=== PATIENT | male | born 2000 | race American Indian/Alaskan Native ===

== ENCOUNTER 2020-07-09 02:07 | Emergency (ER) | payer OTHER ==
[2020-07-09 02:59] VITALS: BP 145/74
--- NOTE | 2020-07-09 04:07 | XRay Report ---
CHEST 2 VIEWS INDICATION / CLINICAL INFORMATION: chestpain. COMPARISON: None available. FINDINGS: SUPPORT DEVICES: None. HEART / MEDIASTINUM: No significant abnormality. LUNGS / PLEURA: No significant pulmonary or pleural abnormality. No pneumothorax. ADDITIONAL FINDINGS: No significant additional findings. IMPRESSION: 1. No acute findings. Signer Name: Petrona Rand MD Signed: 07/09/2020 4:03 AM Workstation Name: [id number]
[2020-07-09 05:06] LABS: Bilirubin,Urine NEG (Negative); Blood,Urine NEG (Negative); Color,Urine Amber (Yellow); Mucus,Urine FEW /HPF; Protein,Urine <15 mg/dL mg/dL (Negative); WBC,Urine < 1.0 /HPF (0.0-6.0)
[2020-07-09] MEDS ORDERED: LIDOCAINE-MPF (1%) 10 MG/1 ML VIAL 5 ML INFILTRATI ONE (05:12)
[2020-07-09] MEDS ORDERED: AZITHROMYCIN 250 MG TAB PO ONE (05:12)
[2020-07-09] MEDS ORDERED: predniSONE 20 MG TAB PO ONE (05:13)
[2020-07-09] MEDS ORDERED: ACETAMINOPHEN 500 MG TAB PO ONE (05:13)
--- NOTE | 2020-07-09 06:10 | Emergency Department Report ---
ED General Adult HPI - General Chief complaint: Chest Pain Stated complaint: CHEST TIGHTNESS/PAINFUL URINATION Source: patient Mode of arrival: Ambulatory Limitations: No Limitations - History of Present Illness Initial comments: Patient is a 20 yo AA male with a history of asthma who presents to the ED with complaint of acute onset persistent chest tightness after smoking marijuana about 4 hours ago. Patient also complaints of low back pain for the last 1 week with dysuria, urinary frequency and urgency, worse in the last 3 days. Patient states that he has been taking Azo tablets at home with no relief. Patient denies fever, chills, nausea, vomiting, dizziness, syncope, testicular pain, abdominal pain, hematuria, back pain, penile discharge or traumatic injury. MD Complaint: Dysuria; cough, chest tightness; urinary urgency -: Sudden, week(s) (1) Location: chest, genitals Radiation: non-radiation Severity scale (0 -10): 6 Quality: aching, sharp Consistency: constant Improves with: none Worsens with: none Associated Symptoms: denies other symptoms, cough, shortness of breath. denies: confusion, chest pain, diaphoresis, fever/chills, headaches, malaise, nausea/vomiting, rash, seizure, syncope, weakness Treatments Prior to Arrival: none - Related Data Previous Rx's Medication Instructions Recorded Last Taken Type Ibuprofen [Motrin] 600 mg PO Q8H PRN #15 tablet 12/17/15 Unknown Rx Cyclobenzaprine [Flexeril] 10 mg PO Q12H PRN #15 tablet 07/09/20 Unknown Rx Ibuprofen [Motrin] 800 mg PO Q8HR PRN #24 tablet 07/09/20 Unknown Rx cephALEXin [Keflex] 500 mg PO Q8HR #30 cap 07/09/20 Unknown Rx predniSONE [Deltasone] 40 mg PO QDAY #10 tab 07/09/20 Unknown Rx Allergies Allergy/AdvReac Type Severity Reaction Status Date / Time No Known Allergies Allergy Unverified 12/17/15 15:26 ED Review of Systems ROS: Stated complaint: CHEST TIGHTNESS/PAINFUL URINATION Other details as noted in HPI Constitutional: denies: chills, fever Eyes: denies: eye pain, eye discharge, vision change ENT: denies: ear pain, throat pain Respiratory: cough, shortness of breath, wheezing Cardiovascular: denies: chest pain, palpitations Endocrine: no symptoms reported Gastrointestinal: denies: abdominal pain, nausea, vomiting, diarrhea Genitourinary: urgency, dysuria, frequency Musculoskeletal: back pain (lower back). denies: joint swelling, arthralgia Skin: denies: rash, lesions Neurological: denies: headache, weakness, paresthesias Psychiatric: denies: anxiety, depression Hematological/Lymphatic: denies: easy bleeding, easy bruising ED Past Medical Hx - Past Medical History Previous Medical History?: Yes Hx Asthma: Yes - Surgical History Past Surgical History?: No - Social History Smoking Status: Current Every Day Smoker Substance Use Type: Marijuana - Medications Home Medications: Home Medications Medication Instructions Recorded Confirmed Last Taken Type Ibuprofen [Motrin] 600 mg PO Q8H PRN #15 tablet 12/17/15 Unknown Rx Cyclobenzaprine [Flexeril] 10 mg PO Q12H PRN #15 tablet 07/09/20 Unknown Rx Ibuprofen [Motrin] 800 mg PO Q8HR PRN #24 tablet 07/09/20 Unknown Rx cephALEXin [Keflex] 500 mg PO Q8HR #30 cap 07/09/20 Unknown Rx predniSONE [Deltasone] 40 mg PO QDAY #10 tab 07/09/20 Unknown Rx ED Physical Exam - General Limitations: No Limitations General appearance: alert, in no apparent distress - Head Head exam: Present: atraumatic, normocephalic, normal inspection - Eye Eye exam: Present: normal appearance, PERRL, EOMI Pupils: Present: normal accommodation - ENT ENT exam: Present: normal exam, normal orophraynx, mucous membranes moist, TM's normal bilaterally, normal external ear exam - Neck Neck exam: Present: normal inspection, full ROM - Respiratory Respiratory exam: Present: normal lung sounds bilaterally. Absent: respiratory distress, wheezes, rales, rhonchi, chest wall tenderness, accessory muscle use, decreased breath sounds, prolonged expiratory - Cardiovascular Cardiovascular Exam: Present: regular rate, normal rhythm, normal heart sounds. Absent: systolic murmur, diastolic murmur, rubs, gallop - GI/Abdominal GI/Abdominal exam: Present: soft, normal bowel sounds. Absent: tenderness, guarding, rebound, hyperactive bowel sounds, hypoactive bowel sounds, organomegaly - exam: Present: normal inspection External exam: Present: normal external exam - Extremities Exam Extremities exam: Present: normal inspection, full ROM, normal capillary refill - Back Exam Back exam: Present: normal inspection, full ROM. Absent: tenderness, CVA tenderness (R), CVA tenderness (L), muscle spasm, paraspinal tenderness, vertebral tenderness - Neurological Exam Neurological exam: Present: alert, oriented X3, CN II-XII intact, normal gait, reflexes normal - Psychiatric Psychiatric exam: Present: normal affect, normal mood - Skin Skin exam: Present: warm, dry, intact, normal color. Absent: rash ED Course Vital Signs 07/09/20 02:41 Temperature 98.0 F Pulse Rate 92 H Respiratory 18 Rate Blood Pressure 145/74 O2 Sat by Pulse 98 Oximetry ED Medical Decision Making - Radiology Data Radiology results: report reviewed, [place] [address] XRay Report Signed Patient: CARLOS ALBERTO CABEZAS MR#: [id number] : 2000 Acct:[id number] Age/Sex: 20 / M ADM Date: 07/09/20 Loc: ED Attending Dr: Ordering Physician: ED MD KYLE Date of Service: 07/09/20 Procedure(s): XR chest routine 2V Accession Number(s): [id number] cc: ED MD KYLE Fluoro Time In Minutes: CHEST 2 VIEWS INDICATION / CLINICAL INFORMATION: chestpain. COMPARISON: None available. FINDINGS: SUPPORT DEVICES: None. HEART / MEDIASTINUM: No significant abnormality. LUNGS / PLEURA: No significant pulmonary or pleural abnormality. No pneumothorax. ADDITIONAL FINDINGS: No significant additional findings. IMPRESSION: 1. No acute findings. Signer Name: Petrona Rand MD Signed: 07/09/2020 4:03 AM Workstation Name: [id number] Transcribed By: Dictated By: Petrona Rand MD Electronically Authenticated By: Petrona Rand MD Signed Date/Time: 07/09/20402 DD/ 1 TD/TT: - Medical Decision Making This is a 20 yo AA male with a history of asthma who presents to the ED with complaint of acute onset persistent chest tightness after smoking marijuana about 4 hours ago. Patient also complaints of low back pain for the last 1 week with dysuria, urinary frequency and urgency, worse in the last 3 days. Patient states that he has been taking Azo tablets at home with no relief. In the ED, patient is alert and oriented x3 and is not in distress. Urinalysis shows significant urinary tract infection. Chest x-ray shows no acute cardiopulmonary abnormalities or pneumonitis. Patient was treated in the ED with antibiotics, and empirically treated for STD chlamydia and gonorrhea. Patient was discharged home on medications and advised follow-up with his primary care physician in 7 to 10 days for reevaluation. Patient is advised return to the ED immediately if symptoms get worse. - Differential Diagnosis Muscle spasm; Muscle strain; UTI; Asthma; Bronchitis Critical care attestation.: If time is entered above; I have spent that time in minutes in the direct care of this critically ill patient, excluding procedure time. ED Disposition Clinical Impression: Acute urinary tract infection, Acute asthmatic bronchitis Muscle strain of right lower extremity Qualifiers: Encounter type: initial encounter Qualified Code(s): S86.911A - Strain of unspecified muscle(s) and tendon(s) at lower leg level, right leg, initial encounter Disposition: TO HOME OR SELFCARE Is pt being admited?: No Does the pt Need Aspirin: No Condition: Stable Instructions: Acute Bronchitis (ED), Urinary Tract Infection, Adult, [id number], Acute Bronchitis, Adult, [id number], Asthma, Adult, [id number], Muscle Strain, [id number] Additional Instructions: Take medication with food, drink plenty of fluids and follow-up with your primary care physician in 5 to 7 days for reevaluation. Return to the ED immediately if symptoms get worse. Prescriptions: predniSONE [Deltasone] 40 mg PO QDAY #10 tab Cyclobenzaprine [Flexeril] 10 mg PO Q12H PRN #15 tablet PRN Reason: Muscle Spasm cephALEXin [Keflex] 500 mg PO Q8HR #30 cap Ibuprofen [Motrin] 800 mg PO Q8HR PRN #24 tablet PRN Reason: Pain , Severe (7-10) Referrals: [facility] [Provider Group] - 7-10 days Time of Disposition: 06:08 Print Language: [employer] [employer] [place]
== END 2020-07-09 07:22 | disposition home or self-care (01) ==
LOC: ED 02:07
DX: S86.911A Strain of unspecified muscle(s) and tendon(s) at lower leg level, right leg, initial encounter (principal); J45.909 Unspecified asthma, uncomplicated; N39.0 Urinary tract infection, site not specified; F17.200 Nicotine dependence, unspecified, uncomplicated; F12.90 Cannabis use, unspecified, uncomplicated; Z79.899 Other long term (current) drug therapy; X58.XXXA Exposure to other specified factors, initial encounter; Y93.89 Activity, other specified; Y92.89 Other specified places as the place of occurrence of the external cause; Y99.8 Other external cause status
CPT/HCPCS: 71046; 81001; 93005; 96372; 99284; J0696; J7512